=== PATIENT | male | born 1975 | race Two or more races ===

== ENCOUNTER → 2017-09-20 | Outpatient (CLI) | payer BC | LOC: M RAD 17:19 | DX: J32.4 Chronic pansinusitis (principal) ==

== ENCOUNTER → 2020-06-26 | Outpatient (REF) | payer BC, SELFPAY | LOC: M LAB REF 13:44 | PROVIDERS: ATTEND Dermatology | DX: R21 Rash and other nonspecific skin eruption (principal) ==

== ENCOUNTER → 2020-07-07 | Outpatient (CLI) | payer BC | LOC: M LAB 17:56 | PROVIDERS: ATTEND Dermatology | DX: R21 Rash and other nonspecific skin eruption (principal) ==

== ENCOUNTER → 2020-07-30 | Outpatient (CLI) | payer BC ==
[2020-07-30 19:55] LABS: HEPATITIS B SURFACE ANTIBODY POSITIVE (POSITIVE); HEPATITIS B SURFACE ANTIGEN NEGATIVE (NEGATIVE); HEPATITIS C VIRUS ABY INDEX 0.3 INDEX (<0.8); HIV 1&2 SCREEN CENTAUR NEGATIVE (NEGATIVE)
== END ==
LOC: M LAB 18:05
PROVIDERS: ATTEND Dermatology
DX: Z79.899 Other long term (current) drug therapy (principal)

== ENCOUNTER → 2020-11-24 | Outpatient (CLI) | payer BC | LOC: M LAB 17:18 | PROVIDERS: ATTEND Dermatology | DX: L43.9 Lichen planus, unspecified (principal) ==